=== PATIENT | female | born 1980 | race Caucasian/White ===

== ENCOUNTER 2023-11-12 16:06 | Emergency (ER) | payer OTHER, SELFPAY ==
[2023-11-12 16:08] VITALS: BP 143/85; PULSE 60; RESP 18; TEMP 36.6; O2SAT 100
--- NOTE | 2023-11-12 17:54 | ED.LOWEXIN ---
HPI - Extremity Injury (Lower) General Chief Complaint: Extremity Injury, Lower Stated Complaint: sent from [facility], L leg dog bit Time Seen by Provider: 11/12/23 16:57 Source: patient Mode of arrival: ambulatory Limitations: no limitations History of Present Illness HPI Narrative: This is a 43 year old female that presents to the ER for evaluation after a dog bite sustained 3 days ago. Reports her daughters dog bit her on the left lower leg. She is currently in [facility] for mental health issues and they wanted her to be seen in the ER for this. She denies fevers, erythema, edema or abnormal drainage. Related Data Allergies Allergy/AdvReac Type Severity Reaction Status Date / Time linezolid Allergy Hives Verified 11/12/23 17:55 Review of Systems Review of Systems: CONSTITUTIONAL: Denies fever SKIN: Reports laceration All systems reviewed & are unremarkable except as noted in HPI and below PMFSH Past Medical History Medical History (Updated 11/12/23 @ 18:02 by Sandra Cuellar PA-C) History of asthma Social History Social History (Updated 11/12/23 @ 17:57 by Sandra Cuellar PA-C) Smoking status: Current every day smoker Exam Narrative: GENERAL: Well-appearing, well-nourished, and in no acute distress. HEAD: Normocephalic, atraumatic. EYES: EOMI. EXTREMITIES: Normal range of motion. No edema. 3, small healing abrasion/lacerations to the left lower leg with very mild surrounding redness. No edema or abnormal drainage SKIN: Warm, dry, no rash. NEURO: No focal deficits. Alert and oriented x3. PSYCH: Normal mood and affect Course Vital Signs Vital signs: Vital Signs Temperature 97.9 F 11/12/23 16:08 Pulse Rate 60 11/12/23 16:08 Respiratory Rate 18 11/12/23 16:08 Blood Pressure 143/85 H 11/12/23 16:08 Pulse Oximetry 100 11/12/23 16:08 Oxygen Delivery Room Air 11/12/23 16:08 Temperature 97.9 F 11/12/23 16:08 Pulse Rate 60 11/12/23 16:08 Respiratory Rate 18 11/12/23 16:08 Blood Pressure 143/85 H 11/12/23 16:08 Pulse Oximetry 100 11/12/23 16:08 Oxygen Delivery Room Air 11/12/23 16:08 MDM - Extremity Injury (Lower) MDM Narrative Medical decision making narrative: Patient presents to the ER after sustaining a dog bite 3 days ago. This was a known dog. Patient was updated on her tetanus vaccination. No overt signs of infection at this time. Will be started on prophylactic antibiotics and was instructed on further wound care. She was given warnings to return to the ER Patient also reports she needs a refill on her albuterol Differential Diagnosis Differential diagnosis: Likely other (dog bite, infected dog bite) Critical Care Time Critical Care Time Critical Care Time: No Discharge Plan Discharge Clinical Impression: Dog bite Qualifiers: Encounter type: initial encounter Qualified Code(s): W54.0XXA - Bitten by dog, initial encounter Patient Disposition: Home, Self-Care Condition: Stable Instructions: Antibiotic Form, Animal Bite (ED) Additional Instructions: Return to the emergency department if you experience fever, redness or swelling of your wound, abnormal drainage from your wound, or any other symptoms that are concerning to you. Apply antibiotic ointment daily. Do not soak the wound. Clean with mild soap and water daily. Take oral antibiotic as prescribed Follow-up with your primary care doctor Prescriptions: New albuterol sulfate 90 mcg/actuation HFA aerosol inhaler 2 puff inhalation QID PRN (Reason: shortness of breath or wheezing) Qty: 8.5 0RF amoxicillin-pot clavulanate 875-125 mg tablet 1 tablet PO Q12H 5 Days Qty: 10 0RF Follow-up/Referrals: Meeta,Miguel Best MD [Primary Care Provider] -
[2023-11-12] MEDS: TETANUS,DIPHTHERIA,AC PERTUSSIS ADULT (0.5 ML) BOOSTRIX IM (18:09)
[2023-11-12 18:24] VITALS: BP 128/76; PULSE 76; RESP 16; TEMP 36.6; O2SAT 100
== END 2023-11-12 18:26 | disposition home or self-care (01) ==
PROVIDERS: Emergency Provider Physician Assistant; PCP Family Medicine
DX: S81.852A Open bite, left lower leg, initial encounter (principal); Z23 Encounter for immunization; J45.909 Unspecified asthma, uncomplicated; F17.200 Nicotine dependence, unspecified, uncomplicated; W54.0XXA Bitten by dog, initial encounter
CPT/HCPCS: 90471; 90715; 99283